=== PATIENT | female | born 1990 | race Caucasian/White ===

== ENCOUNTER 2024-01-12 10:02 | Observation (INO) | payer BC ==
[2024-01-12] MEDS ORDERED: Ondansetron PF 4 MG/2 ML Vial ONE ×2 (10:04→10:58)
[2024-01-12 10:34] LABS: #Monocytes 0.36 10x3/uL (0.0-1.1); #Neutrophils 2.41 10x3/uL (1.5-8.4); %Lymphocytes 26.8 % (18.0-47.0); %Monocytes 9.5 % (0.0-10.0); %Neutrophils 63.4 % (40.0-75.0); Hematocrit 35.5 % (34.9-44.5); Hemoglobin 11.4 g/dL (12.0-15.5); Mean Corpuscular HGB CONC 32.1 g/dL (32.0-36.0); Mean Corpuscular Volume 80.9 fL (81.6-98.3); Mean Platelet Volume 9.2 fL (7.4-10.4); Platelet Count 277 10x3/uL (150-450); RBC Distribution Width 12.4 % (11.5-14.5); Red Blood Cell (RBC) Count 4.39 10x6/uL (3.90-5.03); White Blood Cell (WBC) Count 3.8 10x3/uL (3.5-10.5)
[2024-01-12 10:48] LABS: BHCG - Serum Negative (NEGATIVE); Pregs Control Background? CLEAR/WHITE (CLR/WHITE); Pregs Control Bar Appear? YES (CONTROL BAR)
[2024-01-12 10:51] LABS: ALT (SGPT) 50 U/L (8-55); AST (SGOT) 40 U/L (5-34); Albumin 3.7 g/dL (3.5-5.0); Alkaline Phosphatase 117 U/L (40-110); Anion Gap 15 mmol/L (10-20); BUN (Urea Nitrogen) 15 mg/dL (7.0-18.7); Bilirubin, Total 0.7 mg/dL (0.2-1.2); Calc. Creatinine Clearance 0 mL/min (70-130); Calcium 9.2 mg/dL (7.8-10.44); Carbon Dioxide 21 mmol/L (22-29); Chloride 104 mmol/L (98-107); Estimated GFR 123; Globulin 2.8 g/dL (2.4-3.5); Glucose 92 mg/dL (70-105); Lipase 36 U/L (8-78); Magnesium 1.7 mg/dL (1.6-2.6); Potassium 4.4 mmol/L (3.5-5.1); Protein, Total 6.5 g/dL (6.0-8.3); Sodium 136 mmol/L (136-145)
[2024-01-12 10:53] LABS: Troponin I Less than 0.010 ng/mL (< 0.028)
[2024-01-12] MEDS ORDERED: Meclizine HCl 25 MG TAB ONE (10:59)
[2024-01-12] MEDS ORDERED: Acetaminophen 500 MG TAB ONE (10:59)
[2024-01-12] MEDS ORDERED: Lorazepam 0.5 MG TAB PO PRN (14:57)
[2024-01-12] MEDS ORDERED: Melatonin 3 MG TAB PO PRN (14:57)
[2024-01-12] MEDS ORDERED: Acetaminophen 650 MG Suppository PR PRN (14:58)
[2024-01-12] MEDS ORDERED: Calcium Carbonate 500 MG ChewTAB PO PRN (14:58)
[2024-01-12] MEDS ORDERED: Senokot S 8.6-50 MG TAB PO PRN (14:58)
[2024-01-12] MEDS ORDERED: Ondansetron PF 4 MG/2 ML Vial IVP PRN (14:58)
[2024-01-12 18:05] VITALS: BMI 27.5
[2024-01-12] MEDS: Acetaminophen 325 MG TAB PO SCH (19:01)
[2024-01-12] MEDS: Sodium Chloride 0.9% 1,000 ML IV SCH (19:01)
[2024-01-12] MEDS: Propranolol HCl 20 MG TAB PO SCH (19:02)
[2024-01-12] MEDS: Ondansetron ODT 4 MG TAB PO PRN (21:36)
[2024-01-13] MEDS: Propranolol HCl 20 MG TAB PO SCH (00:45)
[2024-01-13 04:59] LABS: #Monocytes 0.27 10x3/uL (0.0-1.1); #Neutrophils 0.83 10x3/uL (1.5-8.4); %Monocytes 11.8 % (0.0-10.0); %Neutrophils 36.2 % (40.0-75.0); Hematocrit 30.7 % (34.9-44.5); Hemoglobin 9.9 g/dL (12.0-15.5); Mean Corpuscular HGB CONC 32.2 g/dL (32.0-36.0); Mean Corpuscular Volume 80.6 fL (81.6-98.3); Mean Platelet Volume 9.4 fL (7.4-10.4); Platelet Count 225 10x3/uL (150-450); RBC Distribution Width 12.9 % (11.5-14.5); Red Blood Cell (RBC) Count 3.81 10x6/uL (3.90-5.03); White Blood Cell (WBC) Count 2.3 10x3/uL (3.5-10.5)
[2024-01-13 05:20] LABS: ALT (SGPT) 53 U/L (8-55); AST (SGOT) 41 U/L (5-34); Alkaline Phosphatase 105 U/L (40-110); Anion Gap 14 mmol/L (10-20); BUN (Urea Nitrogen) 12 mg/dL (7.0-18.7); Bilirubin, Total 0.4 mg/dL (0.2-1.2); Calc. Creatinine Clearance 187 mL/min (70-130); Calcium 8.7 mg/dL (7.8-10.44); Carbon Dioxide 22 mmol/L (22-29); Chloride 110 mmol/L (98-107); Estimated GFR 124; Globulin 2.4 g/dL (2.4-3.5); Glucose 90 mg/dL (70-105); Potassium 4.3 mmol/L (3.5-5.1); Protein, Total 5.4 g/dL (6.0-8.3); Sodium 142 mmol/L (136-145)
[2024-01-13 08:03] VITALS: TEMP 98.2
[2024-01-13 09:58] VITALS: BP 110/68
== END 2024-01-13 11:57 | disposition home or self-care (01) ==
LOC: CSHERS 10:02 → CSHERHOLD 14:26 → CSHTELE 18:01
PROVIDERS: ADMIT Family Medicine; ATTEND Family Medicine
DX: R00.2 Palpitations (principal); R42 Dizziness and giddiness; R53.83 Other fatigue; R11.2 Nausea with vomiting, unspecified; I10 Essential (primary) hypertension; E05.90 Thyrotoxicosis, unspecified without thyrotoxic crisis or storm; Z98.84 Bariatric surgery status; Z90.89 Acquired absence of other organs; Z90.49 Acquired absence of other specified parts of digestive tract; Z87.59 Personal history of other complications of pregnancy, childbirth and the puerperium; Z88.5 Allergy status to narcotic agent
CPT/HCPCS: 36415; 36416; 80053; 83690; 83735; 84439; 84443; 84481; 84484; 84703; 85025; 93005; 94760; 96374; 96376; G0378; J2405; Q0162